=== PATIENT | male | born 1990 | race Caucasian/White ===

== ENCOUNTER 2018-12-20 09:02 | Emergency (ER) | payer SELFPAY ==
--- NOTE | 2018-12-20 09:04 | ER Report ---
History and Physical Time Seen By MD: 09:00 HPI/ROS CHIEF COMPLAINT: Abdominal pain HISTORY OF PRESENT ILLNESS: Patient is a 28-year-old male who presents to the emergency department with right lower abdominal pain. Patient has a history of bilateral hernia repairs it was done in [place]PROXIMAT[place] one year ago. Patient is currently in [place] and states he is "living out of his car". He has no primary care provider here. He anticipates getting a job in saying in [place]. The pain is fairly severe at 8 out of 10 in intensity associated with some nausea. He denies fevers or chills. Denies change in bowel or bladder function. He reports no vomiting. He denies any other symptoms at this time. REVIEW OF SYSTEMS: Constitutional: No fever, no chills. Eyes: No discharge. ENT: No sore throat. Cardiovascular: No chest pain, no palpitations. Respiratory: No cough, no shortness of breath. Gastrointestinal: Lower quadrant abdominal pain Genitourinary: No hematuria. No groin pain Musculoskeletal: No back pain. Skin: No rashes. Neurological: No headache. Allergies: Coded Allergies: acetaminophen (Verified Allergy, Unknown, "KNOCKED ME OUT FOR 2 DAYS", 12/20/18) codeine (Verified Allergy, Unknown, RASH, 12/20/18) hydrocodone (Verified Allergy, Unknown, "KNOCKED ME OUT FOR 2 DAYS", 12/20/18) Home Meds Active Scripts Dicyclomine Hcl (DICYCLOMINE HCL) 20 Mg Tablet, 20 MG PO QID for abdominal pain, #20 TAB 0 Refills Prov:VINCENT EDWARDS MD 12/20/18 Ondansetron Hcl (ZOFRAN) 4 Mg Tablet, 4 MG PO Q8H for Nausea, #15 TAB 0 Refills Prov:VINCENT EDWARDS MD 12/20/18 Past Medical/Surgical History History of bilateral inguinal hernia repair Constitutional Vital Sign - Last 24 Hours 12/20/18 12/20/18 12/20/18 09:06 09:30 10:00 Temp 98.1 Resp 16 B/P (MAP) 137/93 117/73 (88) 129/86 (100) Pulse Ox 99 99 O2 Delivery Room Air Physical Exam General/Constitutional: Patient is awake, alert, nontoxic and in no acute respiratory distress. Head: Normocephalic and atraumatic. Eyes: Conjunctival clear, Pupils are equal and reactive to light. Extraocular muscles are intact and symmetrical. Sclera are clear and anicteric. Ears:External canals are clear. Tympanic membranes are clear with normal landmarks and light reflex. Nares: No rhinorrhea or bleeding. Turbinates are pink and moist. Oropharyngeal: Mucous membranes are moist. There is no pharyngeal erythema or exudate. There are no palatal petechiae. Uvula is midline and symmetrical. Neck: Supple, no adenopathy. Cardiovascular: Heart is regular rate and rhythm without audible murmurs, rubs or gallops. Pulmonary: Lungs are clear to auscultation bilaterally. There are no wheezes, rales, or rhonchi. Chest rise is symmetrical Abdomen: Bilateral quadrant pain without guarding or peritoneal signs. exam: Normal bilateral testicular alignment no obvious scrotal masses. Extremities: No gross deformities, No peripheral cyanosis. Able to move all 4 extremities. Neuro: Alert and oriented X3, Skin: No rashes, skin is warm dry and well perfused. Medical Decision Making Data Points Result Diagram: 12/20/18 0903 12/20/18 0903 Laboratory Hematology Test 12/20/18 09:03 White Blood Count 9.8 k/uL (4.5-11.0) Red Blood Count 5.48 M/uL (4.00-5.60) Hemoglobin 17.1 g/dL (14.0-18.0) Hematocrit 46.3 % (42.0-52.0) Mean Corpuscular Volume 84.4 fL (80.0-96.0) Mean Corpuscular Hemoglobin 31.2 pg (26.0-33.0) Mean Corpuscular Hemoglobin Concent 36.9 g/dL (32.0-36.0) H Red Cell Distribution Width 13.4 % (11.5-14.5) Platelet Count 309 K/uL (150-450) Mean Platelet Volume 7.3 fL (7.2-11.1) Neutrophils (%) (Auto) 65.3 % (39.4-72.5) Lymphocytes (%) (Auto) 25.8 % (17.6-49.6) Monocytes (%) (Auto) 6.4 % (4.1-12.4) Eosinophils (%) (Auto) 1.9 % (0.4-6.7) Basophils (%) (Auto) 0.6 % (0.3-1.4) Nucleated RBC Relative Count (auto) 0.7 /100WBC Neutrophils # (Auto) 6.4 K/uL (2.0-7.4) Lymphocytes # (Auto) 2.5 K/uL (1.3-3.6) Monocytes # (Auto) 0.6 K/uL (0.3-1.0) Eosinophils # (Auto) 0.2 K/uL (0.0-0.5) Basophils # (Auto) 0.1 K/uL (0.0-0.1) Nucleated RBC Absolute Count (auto) 0.07 K/uL Chemistry Test 12/20/18 09:03 Sodium Level 139 mmol/L (137-145) Potassium Level 3.5 mmol/L (3.5-5.0) Chloride Level 102 mmol/L (98-107) Carbon Dioxide Level 27 mmol/L (22-30) Blood Urea Nitrogen 12 mg/dl (9-21) Creatinine 1.00 mg/dl (0.66-1.25) Glomerular Filtration Rate Calc > 60.0 Random Glucose 119 mg/dl (75-110) Calcium Level 9.2 mg/dl (8.4-10.2) Total Bilirubin 0.5 mg/dl (0.2-1.3) Aspartate Amino Transf (AST/SGOT) 22 U/L (0-35) Alanine Aminotransferase (ALT/SGPT) 24 U/L (0-56) Alkaline Phosphatase 40 U/L (0-126) Total Protein 7.9 g/dl (6.3-8.2) Albumin 4.8 g/dl (3.5-5.0) Lipase 69 U/L (23-300) Urinalysis Test 12/20/18 09:56 Urine Color Yellow Urine Clarity Clear Urine pH 6.0 pH (4.8-9.5) Urine Specific [place] 1.012 Urine Protein Negative mg/dL (NEGATIVE) Urine Glucose (UA) Negative mg/dL (NEGATIVE) Urine Ketones Negative mg/dL (NEGATIVE) Urine Blood Negative (NEGATIVE) Urine Nitrite Negative (NEGATIVE) Urine Bilirubin Negative (NEGATIVE) Urine Urobilinogen Negative mg/dL (0.2-1.9) Urine Leukocyte Esterase Negative (NEGATIVE) Urine RBC None /HPF (0-2/HPF) Urine WBC 1 /HPF (0-5/HPF) Urine Squamous Epithelial Cells Few /LPF (</=FEW) Urine Bacteria Negative /HPF (NONE-FEW) Urine Mucus None /HPF (NONE-FEW) EKG/Imaging Imaging FACILITY: [facility] PATIENT NAME: Roly Mcdonald : 1990 MR: [id number] V: [id number] EXAM DATE: ORDERING PHYSICIAN: VINCENT EDWARDS TECHNOLOGIST: Location: [facility] [place] Patient: Roly Mcdonald : 1990 Visit/Account:[id number] Date of Sevice: 12/20/2018 CT abdomen and pelvis with IV contrast Indication: Right lower quadrant pain Comparison: None available. . Technique: Axial CT images were obtained through the abdomen and pelvis during injection of nonionic iodinated intravenous contrast. Reformatted coronal and sagittal images were also obtained. One of the following dose optimization techniques was utilized in the performance of this exam: Automated exposure control; adjustment of the mA and/or kV according to the patient's size; or use of an iterative reconstruction technique. Specific details can be referenced in the facility's radiology CT exam operational policy. Contrast: 80 ml of Isovue-370 IV contrast. Findings: Lower lung martínez: Limited views lower lung field are unremarkable. Liver: No focal parenchymal abnormality of the liver. Biliary: Gallbladder appears unremarkable as well as the intra and extra hepatic biliary system. Pancreas: Normal appearance. Spleen: Normal appearance. Adrenal glands: Unremarkable. Kidneys / retroperitoneum: No evidence of nephrolithiasis or hydronephrosis Bowel / peritoneum / mesenteries: The small and large intestine are without acute pathology. Within the right adnexa, there is no evidence of free fluid or fatty stranding. The appendix is visualized, air-filled without adjacent periappendiceal stranding in the right lower quadrant. Lymph node assessment: No pathologic adenopathy identified. Pelvic structures: Bladder is distended without wall thickening or adjacent perivesical inflammatory change Vessels: No significant atherosclerotic calcifications seen throughout a nonaneurysmal abdominal aorta and branches. Musculoskeletal / Body wall: No acute or aggressive osseous abnormality. IMPRESSION: 1. No evidence of acute intra-abdominal or pelvic pathology. Report Dictated By: Se Hart MD at 12/20/2018 11:03 AM Report E-Signed By: Se Hart MD at 12/20/2018 11:07 AM WSN:[id number] ED Course/Re-evaluation ED Course 12/20/2018 11:17:40 am blood work is reassuring and abdominal CTs as well as to recognize any acute abdominal pathology. Patient feeling better after IV fluids nausea and pain medicine plan at this time will be to discharge home with instructions to return if symptoms worsen, we will send prescriptions for Bentyl and Zofran. Decision to Disposition Date: Dec 20, 2018 Decision to Disposition Time: 11:19 Depart Departure Latest Vital Signs Vital Signs Date Time Temp Pulse Resp B/P (MAP) Pulse Ox O2 Delivery O2 Flow Rate FiO2 12/20/18 10:00 129/86 (100) 12/20/18 09:30 99 12/20/18 09:06 98.1 16 Room Air Impression: Primary Impression: Abdominal pain Condition: Improved Disposition: HOME OR SELF-CARE Referrals: ANA LEIGH DO call to schedule a follow up appointment and establish a primary care physician New Scripts Dicyclomine Hcl (DICYCLOMINE HCL) 20 Mg Tablet 20 MG PO QID for abdominal pain, #20 TAB 0 Refills Prov: VINCENT EDWARDS MD 12/20/18 Ondansetron Hcl (ZOFRAN) 4 Mg Tablet 4 MG PO Q8H for Nausea, #15 TAB 0 Refills Prov: VINCENT EDWARDS MD 12/20/18 Patient Instructions: Abdominal Pain (ED) Additional Instructions: Return to the emergency department if symptoms worsen at any time. Problem Qualifiers Primary Impression: Abdominal pain Abdominal location: right lower quadrant Qualified Codes: R10.31 - Right lower quadrant pain VINCENT EDWARDS MD Dec 20, 2018 09:04
[2018-12-20] MEDS ORDERED: NS(*) 0.9% 1000 ML BAG 1,000 ML IV ONE (09:47)
[2018-12-20] MEDS ORDERED: KETOROLAC 30 MG/ML VIAL IVP ONE (09:50)
[2018-12-20] MEDS ORDERED: ONDANSETRON 4 MG/2 ML VIAL IVP ONE (09:50)
[2018-12-20 09:58] LABS: PLATELET COUNT, AUTOMATED 309 K/uL (150-450)
[2018-12-20 10:00] VITALS: BP 129/86
[2018-12-20] MEDS ORDERED: IOPAMIDOL 76% 100 ML INFUS BTL 100 ML ONE (10:31)
--- NOTE | 2018-12-20 11:15 | RADIOLOGY IMAGING REPORT ---
FACILITY: [facility] PATIENT NAME: Roly Mcdonald : 1990 MR: [id number] V: [id number] EXAM DATE: ORDERING PHYSICIAN: VINCENT EDWARDS TECHNOLOGIST: Location: [facility] [place] Patient: Roly Mcdonald : 1990 Visit/Account:[id number] Date of Sevice: 12/20/2018 CT abdomen and pelvis with IV contrast Indication: Right lower quadrant pain Comparison: None available. . Technique: Axial CT images were obtained through the abdomen and pelvis during injection of nonioni c iodinated intravenous contrast. Reformatted coronal and sagittal images were also obtained. One of the following dose optimization techniques was utilized in the performance of this exam: Automated ex posure control; adjustment of the mA and/or kV according to the patient's size; or use of an iterativ e reconstruction technique. Specific details can be referenced in the facility's radiology CT exam operational policy. Contrast: 80 ml of Isovue-370 IV contrast. Findings: Lower lung martínez: Limited views lower lung field are unremarkable. Liver: No focal parenchymal abnormality of the liver. Biliary: Gallbladder appears unremarkable as well as the intra and extra hepatic biliary system. Pancreas: Normal appearance. Spleen: Normal appearance. Adrenal glands: Unremarkable. Kidneys / retroperitoneum: No evidence of nephrolithiasis or hydronephrosis Bowel / peritoneum / mesenteries: The small and large intestine are without acute pathology. Within t he right adnexa, there is no evidence of free fluid or fatty stranding. The appendix is visualized, a ir-filled without adjacent periappendiceal stranding in the right lower quadrant. Lymph node assessment: No pathologic adenopathy identified. Pelvic structures: Bladder is distended without wall thickening or adjacent perivesical inflammato ry change Vessels: No significant atherosclerotic calcifications seen throughout a nonaneurysmal abdominal aort a and branches. Musculoskeletal / Body wall: No acute or aggressive osseous abnormality. IMPRESSION: 1. No evidence of acute intra-abdominal or pelvic pathology. Report Dictated By: Se Hart MD at 12/20/2018 11:03 AM Report E-Signed By: Se Hart MD at 12/20/2018 11:07 AM WSN:[id number]
[2018-12-20] MEDS ORDERED: DICY20TA70 PO (11:25)
[2018-12-20] MEDS ORDERED: ONDA4TAB97 PO (11:25)
== END 2018-12-20 11:26 | disposition home or self-care (01) ==
LOC: ER 09:22
DX: R10.31 Right lower quadrant pain (principal)
CPT/HCPCS: 74177; 81001; 83690; 85025; 96361; 96374; 96375; 99284; J1885; J2405; J7030; Q9967; 82040; 82247; 82310; 82374; 82435; 82565; 82947; 84075; 84132; 84155; 84295; 84450; 84460; 84520